=== PATIENT | female | born 1980 | race Caucasian/White ===

== ENCOUNTER 2017-03-09 17:38 | Emergency (ER) | payer SELFPAY ==
[~2017-03-09] VITALS: Ht 157.5 cm; Wt 69.5 kg
[2017-03-09 18:31] LABS: BASOPHIL % 0.6 % (0-2); PLATELET COUNT 379 x10^3mcL (130-400); RED CELL DISTRIBUTION WIDTH 12.8 % (11.5-14.5)
[2017-03-09 18:34] LABS: microscopic required? YES; urine erythrocyte 2+ (NEGATIVE)
[2017-03-09 18:43] LABS: AMPHETAMINE QUAL UR NONE DETECTED (NEG <=1000)
[2017-03-09 18:44] LABS: CALCIUM 9.1 mg/dL (8.5-10.1); CARBON DIOXIDE 23.6 mmol/L (21-32); CHLORIDE SERUM 102 mmol/L (98-107); CREATININE SERUM 0.7 mg/dL (0.6-1.0); GFR1 > 60 mL/min; GLUCOSE SERUM 113 mg/dL (74-106); POTASSIUM SERUM 3.6 mmol/L (3.5-5.1); SODIUM SERUM 141 mmol/L (136-145)
[2017-03-09 18:54] LABS: ALBUMIN 4.1 g/dL (3.4-5.0); ALKALINE PHOSPHATASE 82 U/L (46-116); ALT/SGPT 36 U/L (14-59); AMYLASE 71 U/L (25-115); AST/SGOT 29 U/L (15-37); BILIRUBIN TOTAL 0.36 mg/dL (0.20-1.00); CHOLESTEROL 199 mg/dL (<200); HDL CHOLESTEROL 57 mg/dL (40-60); LIPASE 200 IU/L (73-393); T4(THYROXINE) 8.7 ug/dL (4.7-13.3)
[2017-03-09 18:55] LABS: TOTAL PROTEIN, SERUM 8.9 g/dL (6.4-8.2)
[2017-03-09 20:34] VITALS: BP 127/86
== END 2017-03-09 20:34 | disposition home or self-care (01) ==
LOC: ED 17:38
PROVIDERS: Emergency Medicine
DX: R00.2 Palpitations (principal); Z88.1 Allergy status to other antibiotic agents
CPT/HCPCS: 83880; 85378; J2060; J7030; Q0092

== ENCOUNTER 2017-08-22 15:46 | Emergency (ER) | payer SELFPAY ==
[2017-08-22 15:52] VITALS: BP 135/73
== END 2017-08-22 17:49 | disposition left against medical advice (07) ==
LOC: ED 15:46
DX: Z53.21 Procedure and treatment not carried out due to patient leaving prior to being seen by health care provider (principal)

== ENCOUNTER 2017-09-06 12:04 | Emergency (ER) | payer SELFPAY ==
[~2017-09-06] VITALS: Ht 157.5 cm; Wt 67.1 kg
[2017-09-06 12:09] VITALS: Ht 157.5 cm; Wt 67.1 kg
[2017-09-06 12:54] LABS: BASOPHIL % 0.3 % (0-2); RED CELL DISTRIBUTION WIDTH 13.3 % (11.5-14.5)
[2017-09-06 12:55] LABS: PLATELET COUNT 409 x10^3mcL (130-400)
[2017-09-06 12:56] LABS: CALCIUM 9.1 mg/dL (8.5-10.1); CARBON DIOXIDE 26.5 mmol/L (21-32); CHLORIDE SERUM 104 mmol/L (98-107); CREATININE SERUM 0.7 mg/dL (0.6-1.0); GFR1 > 60 mL/min; GLUCOSE SERUM 96 mg/dL (74-106); POTASSIUM SERUM 3.4 mmol/L (3.5-5.1); SODIUM SERUM 141 mmol/L (136-145)
[2017-09-06 14:31] VITALS: BP 126/83
== END 2017-09-06 14:31 | disposition home or self-care (01) ==
LOC: ED 12:04
PROVIDERS: Emergency Medicine
DX: S76.911A Strain of unspecified muscles, fascia and tendons at thigh level, right thigh, initial encounter (principal); Z88.1 Allergy status to other antibiotic agents; X58.XXXA Exposure to other specified factors, initial encounter; Y93.89 Activity, other specified; Y92.89 Other specified places as the place of occurrence of the external cause; Y99.8 Other external cause status
CPT/HCPCS: 36415; J1885

== ENCOUNTER 2018-04-16 13:51 | Emergency (ER) | payer MEDICAID ==
[~2018-04-16] VITALS: Ht 157.5 cm; Wt 72.6 kg
[2018-04-16 14:01] VITALS: Ht 157.5 cm; Wt 72.6 kg
[2018-04-16 15:25] LABS: BASOPHIL % 0.4 % (0-2); PLATELET COUNT 394 x10^3mcL (130-400); RED CELL DISTRIBUTION WIDTH 12.8 % (11.5-14.5)
[2018-04-16 15:35] LABS: CALCIUM 9.2 mg/dL (8.5-10.1); CARBON DIOXIDE 26.6 mmol/L (21-32); CHLORIDE SERUM 105 mmol/L (98-107); CREATININE SERUM 0.6 mg/dL (0.6-1.0); GFR1 > 60 mL/min; GLUCOSE SERUM 94 mg/dL (74-106); POTASSIUM SERUM 3.7 mmol/L (3.5-5.1); SODIUM SERUM 139 mmol/L (136-145)
[2018-04-16 18:02] VITALS: BP 122/60
== END 2018-04-16 18:24 | disposition home or self-care (01) ==
LOC: ED 13:51
PROVIDERS: Emergency Medicine
DX: D25.9 Leiomyoma of uterus, unspecified (principal); Z88.1 Allergy status to other antibiotic agents
CPT/HCPCS: 36415; J1885; Q0092

== ENCOUNTER 2019-01-14 02:01 | Emergency (ER) | payer SELFPAY ==
[~2019-01-14] VITALS: Ht 157.5 cm; Wt 72.6 kg
[2019-01-14 02:05] VITALS: Ht 157.5 cm; Wt 72.6 kg
[2019-01-14 03:15] LABS: BASOPHIL % 0.3 % (0-2); RED CELL DISTRIBUTION WIDTH 13.4 % (11.5-14.5)
[2019-01-14 03:17] LABS: PLATELET COUNT 513 x10^3mcL (130-400)
[2019-01-14 04:41] VITALS: BP 117/78
== END 2019-01-14 04:41 | disposition home or self-care (01) ==
LOC: ED 02:01
PROVIDERS: Emergency Medicine
DX: N93.8 Other specified abnormal uterine and vaginal bleeding (principal); Z88.8 Allergy status to other drugs, medicaments and biological substances; Z90.710 Acquired absence of both cervix and uterus
CPT/HCPCS: 36415; Q0092

== ENCOUNTER 2019-01-19 13:25 | Emergency (ER) | payer SELFPAY ==
[~2019-01-19] VITALS: Ht 157.5 cm; Wt 73.9 kg
[2019-01-19 13:58] VITALS: BP 120/68; Ht 157.5 cm; Wt 73.9 kg
== END 2019-01-19 16:38 | disposition left against medical advice (07) ==
LOC: ED 13:25
DX: Z53.21 Procedure and treatment not carried out due to patient leaving prior to being seen by health care provider (principal)